=== PATIENT | male | born 1970 | race Caucasian/White ===

== ENCOUNTER → 2021-01-18 16:51 | Outpatient (CLI) | payer OTHER, SELFPAY ==
--- NOTE | 2021-01-18 16:52 | DI.MRI.S_ITS ---
PROCEDURE: MR KNEE LT WO CON INDICATIONS: Pain in left knee TECHNIQUE: Noncontrast sagittal PD fast spin echo and T2 fast spin echo with fat saturation, sagittal 3-D FLASH with fat saturation; coronal T1 spin echo and PD fast spin echo with fat saturation, and axial PD fast spin echo with fat saturation through the knee. COMPARISON: None. FINDINGS: Menisci: Medial meniscus: Intact. Lateral meniscus: Intact. Cruciate ligaments: Anterior cruciate ligament: Intact. Posterior cruciate ligament: Intact. Medial structures: The medial collateral ligament: Intact. Semimembranosus tendon: Mild insertional tendinopathy and thickening. Visualized pes anserinus tendons: Intact. Bursal fluid: none. Lateral structures: The lateral collateral ligament intact. Biceps femoris tendon appears intact. Popliteus tendon grossly unremarkable. Iliotibial band appears intact. Anterior structures: Quadriceps tendon intact. Medial and lateral patellofemoral ligaments intact. There is mild patellar tendinopathy. Prepatellar and superficial infrapatellar subcutaneous edema/fluid. Trace deep infrapatellar bursal fluid is seen. Bones and cartilage: Marrow: No focal marrow contusion or discrete low signal fracture line. Medial compartment: Diffuse partial-thickness loss and surface fraying of the femoral cartilage. The tibial cartilage appears grossly intact. Lateral compartment: No focal cartilage defect. Patellofemoral compartment: No focal cartilage defect. Joint space: No joint effusion. No Shea's cyst. No specific evidence of intra-articular loose body. IMPRESSION: Patellar tendinopathy with adjacent fluid and edema. Mild insertional semimembranosus tendinopathy. Medial compartment osteoarthritis Dictated by: Heriberto Cummins M.D. on 01/19/2021 at 8:26 Approved by: Heriberto Cummins M.D. on 01/19/2021 at 8:32
== END ==
PROVIDERS: PCP Family Medicine; Referring Provider Family Medicine; Visit Provider Family Medicine
DX: M25.562 Pain in left knee (principal); M17.12 Unilateral primary osteoarthritis, left knee
CPT/HCPCS: 73721

== ENCOUNTER → 2021-01-28 14:19 | Outpatient (CLI) | payer OTHER, SELFPAY ==
[2021-01-28] MEDS: COVID-19 VACC #2, MRNA(MOD) 100 MCG/0.5 ML VIAL IM (14:25)
== END ==
PROVIDERS: PCP Family Medicine; Visit Provider Internal Medicine
DX: Z23 Encounter for immunization (principal)
CPT/HCPCS: 0012A; 91301

== ENCOUNTER → 2022-12-10 09:09 | Outpatient (CLI) | payer OTHER, SELFPAY ==
--- NOTE | 2022-12-10 | DI.MRI.S_ITS ---
PROCEDURE: MR KNEE RT WO CON INDICATIONS: TEAR AND PAIN TECHNIQUE: Noncontrast sagittal PD fast spin echo and T2 fast spin echo with fat saturation, sagittal 3-D FLASH with fat saturation; coronal T1 spin echo and PD fast spin echo with fat saturation, and axial PD fast spin echo with fat saturation through the knee. COMPARISON: [facility], MR, MR KNEE RIGHT WITHOUT CONTRAST, 08/04/2018, 13:01. FINDINGS: Image quality: Excellent. Anterior Cruciate Ligament: Intact. Posterior Cruciate Ligament: Intact. Medial Collateral Ligament: Intact. Lateral Collateral Ligament: Intact. Medial Meniscus: Diminutive appearance of the medial meniscal body and truncation of the inner margin of the posterior horn are compatible with prior partial meniscectomy. No recurrent medial meniscal tear is seen. Lateral Meniscus: Intact. Medial and Lateral Tendons: The semimembranosus tendon insertions and meniscocapsular junction appear intact. Visualized portions of the pes anserinus tendons appear normal. No abnormal bursal fluid. The long and short heads of the biceps femoris tendon appear intact. The popliteus tendon appears intact. No signs of posterolateral corner injury. Iliotibial band appears normal. Anterior Structures: The quadriceps and patellar tendons appear intact. No patellar subluxation. No femoral trochlear dysplasia or ventral trochlear prominence. Mild scarring in the infrapatellar fat pad. Bones: No acute trabecular bone injury or fracture. Medial Femorotibial Cartilage: Generalized moderate grade partial-thickness cartilage thinning is seen throughout the weight-bearing portion of the medial femorotibial compartment. There is focal deep cartilage fissuring and subchondral edema at the posterior weight-bearing portion of the medial femoral condyle. Small marginal osteophytes are present. The degree of cartilage loss has mildly progressed when compared to the MRI from 08/04/2018. Lateral Femorotibial Cartilage: Mild partial-thickness cartilage thinning in the posterior weight-bearing portion of the lateral tibial plateau. Patellofemoral Cartilage: Partial-thickness cartilage irregularity is seen at the median ridge/lateral facet of the patella. There is high-grade partial-thickness cartilage loss at the trochlear groove and lateral femoral trochlea. Soft Tissues: A small amount of joint fluid is present. Fluid is seen tracking inferiorly along the popliteus tendon sheath. Trace medial popliteal cyst. The musculature surrounding the knee is normal in bulk. IMPRESSION: 1. Postsurgical changes from partial medial meniscectomy with a moderately diminutive residual rim of tissue at the meniscal body. No recurrent meniscal tear is seen. 2. Grade 3 chondromalacia is seen in the patellofemoral compartment at the trochlear groove and lateral femoral trochlea. Grade 2-3 chondromalacia and cartilage thinning are seen in the medial femorotibial compartment and there is mild grade 2 chondromalacia in the lateral compartment. Cartilage loss has progressed when compared to the prior MRI from 08/04/2018. 3. No acute trabecular bone injury. Cruciate and collateral ligaments are intact. 4. Small joint effusion. Small lateral popliteal cyst. Approved by: Werner Springer M.D. on 12/12/2022 at 9:44
--- NOTE | 2022-12-10 | DI.MRI.S_ITS ---
PROCEDURE: MR KNEE LT WO CON INDICATIONS: TEARS AND PAIN TECHNIQUE: Noncontrast sagittal PD fast spin echo and T2 fast spin echo with fat saturation, sagittal 3-D FLASH with fat saturation; coronal T1 spin echo and PD fast spin echo with fat saturation, and axial PD fast spin echo with fat saturation through the knee. COMPARISON: [facility] Outside Film, MR, MR KNEE LEFT WITHOUT CONTRAST, 01/25/2022, 10:35. [facility], MR, MR KNEE LT WO CON, 01/18/2021, 16:58. FINDINGS: Image quality: Excellent. Anterior Cruciate Ligament: Intact. Posterior Cruciate Ligament: Intact. Medial Collateral Ligament: Intact. Lateral Collateral Ligament: Intact. Medial Meniscus: Complex tearing is seen involving the body of the medial meniscus near the junction with posterior horn with a horizontal oblique component that extends to the middle third of the tibial articular surface as well as a deep radial component. There is mild extrusion of the meniscal body beyond the femorotibial joint line. The tear appears new when compared to the MRI from 01/24/2024. Lateral Meniscus: Intact. Medial and Lateral Tendons: The semimembranosus tendon insertions and meniscocapsular junction appear intact. Visualized portions of the pes anserinus tendons appear normal. No abnormal bursal fluid. The long and short heads of the biceps femoris tendon appear intact. The popliteus tendon appears intact. No signs of posterolateral corner injury. Iliotibial band appears normal. Anterior Structures: The quadriceps and patellar tendons appear intact. No patellar subluxation. No femoral trochlear dysplasia or ventral trochlear prominence. No edema in the infrapatellar fat pad. Bones: No acute trabecular bone injury or fracture. Medial Femorotibial Cartilage: High-grade partial-thickness cartilage thinning irregularity is seen throughout the weight-bearing portion of the medial femorotibial compartment with subchondral edema and marginal osteophyte formation. Cartilage loss has mildly progressed when compared to the MRI from 01/25/2022. Lateral Femorotibial Cartilage: Mild partial-thickness surface cartilage irregularity of the posterior weight-bearing portion of the lateral tibial plateau. Patellofemoral Cartilage: Shallow cartilage fissuring is seen at the medial facet and median ridge of the patella in the trochlear groove. Soft Tissues: A small amount of joint fluid is present. Fluid is seen tracking along the popliteus tendon sheath and there is surrounding soft tissue edema included within the popliteus muscle, possibly related to prior cyst rupture versus popliteus tendon strain. Trace medial popliteal cyst. The musculature surrounding the knee is normal in bulk. IMPRESSION: 1. Complex tearing of the medial meniscal body with horizontal oblique and radial components, which is new when compared to the MRI from 01/25/2022. Mild extrusion of the meniscal body beyond the femorotibial joint line. 2. Grade 3 chondromalacia throughout the weight-bearing portion of the medial femorotibial compartment with mild subchondral edema, mildly progressed when compared to the prior MRI. There is also mild grade 2 chondromalacia in the lateral compartment and shallow cartilage fissuring in the anterior compartment. 3. No acute trabecular bone injury. The cruciate and collateral ligaments are intact. 4. Small joint effusion. 5. Small lateral popliteal cyst with signs of possible prior cyst rupture versus low-grade popliteus muscle strain. Approved by: Werner Springer M.D. on 12/12/2022 at 9:54
== END ==
PROVIDERS: PCP Family Medicine; Referring Provider Family Medicine; Visit Provider Family Medicine
DX: S83.232A Complex tear of medial meniscus, current injury, left knee, initial encounter (principal); M94.262 Chondromalacia, left knee; M71.22 Synovial cyst of popliteal space [Baker], left knee; M25.462 Effusion, left knee; M22.41 Chondromalacia patellae, right knee; M25.461 Effusion, right knee; M71.21 Synovial cyst of popliteal space [Baker], right knee; M25.569 Pain in unspecified knee; Z98.890 Other specified postprocedural states
CPT/HCPCS: 73721

== ENCOUNTER 2024-04-01 17:15 | Emergency (ER) | payer BC, OTHER, SELFPAY ==
--- NOTE | 2024-04-01 17:21 | DI.RAD.S_ITS ---
PROCEDURE: XR CHEST 1V INDICATIONS: chest pain TECHNIQUE: One view of the chest was acquired. COMPARISON: None. FINDINGS: Surgical changes and devices: None. Lungs and pleura: Lungs are clear. No pleural effusions or pneumothorax. Mediastinum: Mediastinal contours appear normal. Heart size is normal. Bones and chest wall: No suspicious bony lesions. Overlying soft tissues appear unremarkable. IMPRESSION: No acute pulmonary process. Dictated by: Parul Ross M.D. on 04/01/2024 at 17:48 Approved by: Parul Ross M.D. on 04/01/2024 at 17:48
[2024-04-01 17:23] VITALS: BP 160/84; PULSE 63; RESP 16; TEMP 36.6; O2SAT 99; BMI 39.9
[2024-04-01 17:29] VITALS: PULSE 70; RESP 17; O2SAT 98
[2024-04-01 17:30] VITALS: PULSE 71; RESP 17; O2SAT 98
--- NOTE | 2024-04-01 17:30 | EKG_ITS ---
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
[2024-04-01 17:36] LABS: Add Manual Diff / Slide Review NO; Basophils Absolute Auto 100 /uL (0-100); Basophils Percent Auto 0.9 % (0-2); Eosinophils Absolute Auto 200 /uL (0-450); Eosinophils Percent Auto 3.6 % (2-4); Hematocrit 46.9 % (41-53); Hemoglobin 16.3 g/dL (13.5-17.5); Lymphocytes Absolute Auto 1900 /uL (1100-4500); Lymphocytes Percent Auto 31.9 % (25-40); Mean Corpuscular HGB Conc 34.8 % (30-36); Mean Corpuscular Volume 94.7 fL (80-100); Monocytes Absolute Auto 700 /uL (0-900); Monocytes Percent Auto 12.3 % (3-14); Neutrophils Absolute Auto 3000 /uL (1500-7000); Neutrophils Percent Auto 51.3 % (50-75); Platelet Count 190 X10^3/uL (150-400); Red Blood Cell Count 4.95 X10^6/uL (4.5-5.9); Red Cell Distribution Width 12.3 % (11.6-14.8); White Blood Cell Count 5.9 X10^3/uL (4.5-11.0)
[2024-04-01 17:41] VITALS: BP 161/98; PULSE 65; RESP 10
--- NOTE | 2024-04-01 17:41 | PC.NURSE ---
Patient denies chest pain and shortness of breath. States that the [facility] did an EKG because he had an elevated pressure and possible arrhythmia on his vital signs and sent him to ED for rule out TN. 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
[2024-04-01 17:49] LABS: PTT Partial Thromboplastin Tim 33 SECONDS (25.1-36.5)
[2024-04-01 17:51] LABS: Alanine Aminotransferase 75 IU/L (<50); Albumin 4.4 g/dL (3.5-5.0); Albumin Globulin Ratio 1.4 (1.0-2.8); Alkaline Phosphatase 84 U/L (38-126); Aspartate Aminotransferase 41 IU/L (17-59); BUN Creatinine Ratio 17.4 (6-22); Bilirubin Total 0.9 mg/dL (0.2-1.3); Blood Urea Nitrogen 16 mg/dL (9-20); Calcium 9.2 mg/dL (8.4-10.2); Carbon Dioxide 23 mmol/L (22-32); Chloride 107 mmol/L (98-107); Creatine Kinase 161 U/L (55-170); Estimated Glomerular Filt Rate > 60 mL/min (>60); Globulin 3.1 g/dL (1.7-4.1); Glucose 98 mg/dL (70-100); HEMOLYSIS < 15 (0-50); Lipase 313 U/L (23-300); Magnesium 1.9 mg/dL (1.6-2.3); Sodium 136 mmol/L (137-145); Total Protein 7.5 g/dL (6.3-8.2)
[2024-04-01 17:55] LABS: COVID19 -Nasal RAPID Negative (Negative)
[2024-04-01 18:00] VITALS: PULSE 70; RESP 16
[2024-04-01 18:02] LABS: NT-proBNP (BNP-Adult 18+) 36 pg/mL (<125); Troponin I < 0.012 ng/mL (0.01-0.034)
--- NOTE | 2024-04-01 18:04 | ED_ITS ---
HPI - Chest Pain General Chief Complaint: Upper Respiratory Symptoms Stated Complaint: irregular heartbeat Time Seen by Provider: 04/01/24 17:19 Source: patient Mode of arrival: Ambulatory Limitations: no limitations History of Present Illness HPI narrative: Patient is a healthy 53-year-old male who presents today at request of walk-in clinic. He went to the walk-in clinic today because he felt funny he had some chills and headache found to be hypertensive with a abnormal EKG and they said concerning for an MO. He has no acute ST elevations denies any sort of chest pain now. He reports that he is just felt really fatigued and tired no significant shortness of breath cough or fever. He recently started minocycline for folliculitis couple days ago. 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 He has no throat swelling tongue swelling lip swelling or difficulty breathing he has no hives or urticaria. He previously felt some similar symptoms when he had bronchitis and when he was allergic to Mobic. He does have family history dad had MO in his 40s however all 3 brothers who are older than him have never had cardiac issues he has no known coronary artery disease. His EKG does show some Q-waves in lead 3 and AVF. He actually has an appointment with his primary care provider on April 16 Related Data Allergies Allergy/AdvReac Type Severity Reaction Status Date / Time meloxicam [From Mobic] AdvReac Mild Hypertensio Verified 04/01/24 17:22 n Patient History Social History Smoking Status: Former smoker Smoking Status: Former smoker alcohol intake frequency: a few times a week Substance Use Type: does not use Exam Initial Vital Signs Initial Vital Signs: Vital Signs Temperature 97.9 F 04/01/24 17:23 Pulse Rate 63 04/01/24 17:23 Respiratory Rate 16 04/01/24 17:23 Blood Pressure 160/84 H 04/01/24 17:23 Pulse Oximetry 99 04/01/24 17:23 Oxygen Delivery Method Room Air 04/01/24 17:23 GENERAL: Alert pleasant 53-year-old male and in no acute distress. HEENT: Head atraumatic,EOMI, pupils reactive, face symmetric, moist mucous membranes CARDIOVASCULAR: Regular rate and rhythm without murmurs, rubs or gallops. RESPIRATORY: Breath sounds equal bilaterally, no wheezes rales or rhonchi. ABDOMEN: Soft, nontender. Normoactive bowel sounds all 4 quadrants. No guarding or rebound. EXTREMITIES: Normal range of motion, no clubbing or edema. Neurovascularly intact NEUROLOGICAL: Alert and oriented x4.Normal gait and speech. SKIN: Warm, dry, no laceration, no petechiae, no rashes or lesions. Scores HEART Score Heart Score history: Slightly Suspicious Heart Score EKG: Normal Heart Score Age: 45-64 years old Heart Score risk factors: 1-2 risk factors Heart Score troponin: < or = to normal limit Heart Score Total: 2 Course Orders Ordered: ED Orders 04/01/24 17:21 XR chest 1V Stat EKG-12 Lead Stat 04/01/24 17:25 Complete Blood Count AUTO DIFF Stat Comprehensive Metabolic Panel Stat Lipase Stat Magnesium Stat NT-proBNP (BNP-Adult 18+) Stat PTT Partial Thromboplastin Iraj Stat Prothrombin Time INR Stat Troponin & CK Cardiac Panel Stat 04/01/24 17:32 COVID19 -Nasal RAPID Stat Discontinued Medications Aspirin (Aspirin 81 Mg Chew Tab) 324 mg PO NOW ONE Stop: 04/01/24 17:22 Last Admin: 04/01/24 18:31 Dose: Not Given Documented By: ZACHERY Vital Signs Vital signs: Vital Signs - 8 hr 04/01/24 17:23 04/01/24 17:29 04/01/24 17:30 Temperature 97.9 F Pulse Rate 63 70 71 Respiratory Rate 16 17 17 Blood Pressure 160/84 H Pulse Oximetry 99 98 98 Oxygen Delivery Method Room Air 04/01/24 17:41 04/01/24 17:41 04/01/24 18:00 Temperature Pulse Rate 65 70 Respiratory Rate 10 L 16 Blood Pressure 161/98 H Pulse Oximetry Oxygen Delivery Method MDM - Chest Pain Lab Data 04/01/24 17:25 04/01/24 17:25 Labs: Lab Results 04/01/24 04/01/24 Range/Units 17:25 17:32 WBC 5.9 (4.5-11.0) X10^3/uL RBC 4.95 (4.5-5.9) X10^6/uL Hgb 16.3 (13.5-17.5) g/dL Hct 46.9 (41-53) % MCV 94.7 (80-100) fL MCH 33.0 (26-34) PG MCHC 34.8 (30-36) % RDW 12.3 (11.6-14.8) % Plt Count 190 (150-400) X10^3/uL Neut % (Auto) 51.3 (50-75) % Lymph % (Auto) 31.9 (25-40) % [place] % (Auto) 12.3 (3-14) % Eos % (Auto) 3.6 (2-4) % Baso % (Auto) 0.9 (0-2) % Neut # (Auto) 3000 (7141-9648) /uL Lymph # (Auto) 1900 (1552-4110) /uL [place] # (Auto) 700 (0-900) /uL Eos # (Auto) 200 (0-450) /uL Baso # (Auto) 100 (0-100) /uL PT 12.0 (9.4-12.5) SECONDS INR 1.0 (0.9-1.3) APTT 33 (25.1-36.5) SECONDS Sodium 136 L (137-145) mmol/L Potassium 4.0 (3.4-5.1) mmol/L Chloride 107 (98-107) mmol/L Carbon Dioxide 23 (22-32) mmol/L BUN 16 (9-20) mg/dL Creatinine 0.92 (0.66-1.25) mg/dL Estimated GFR > 60 (>60) mL/min BUN/Creatinine Ratio 17.4 (6-22) Glucose 98 (70-100) mg/dL Calcium 9.2 (8.4-10.2) mg/dL Magnesium 1.9 (1.6-2.3) mg/dL Total Bilirubin 0.9 (0.2-1.3) mg/dL AST 41 (17-59) IU/L ALT 75 H (<50) IU/L Alkaline Phosphatase 84 (38-126) U/L Total Creatine Kinase 161 (55-170) U/L Troponin I < 0.012 (0.01-0.034) ng/mL NT-Pro-B Natriuret Pep 36 (<125) pg/mL Total Protein 7.5 (6.3-8.2) g/dL Albumin 4.4 (3.5-5.0) g/dL Globulin 3.1 (1.7-4.1) g/dL Albumin/Globulin Ratio 1.4 (1.0-2.8) Lipase 313 H (23-300) U/L SARS-CoV-2 (PCR) Negative (Negative) ECG Data Attestation: I personally reviewed and interpreted this ECG as follows: Interpretation: Normal sinus rhythm rate 64 AK interval 166 QRS 78 QTC 435 PVC noted Q-wave and T-wave inversion noted in lead 3 and AVF no changes in lead 2 no priors to compare MDM Narrative Medical decision making narrative: Patient 53-year-old male with family history dad having cardiac disease presenting today with fatigue mild headache and elevated blood pressure. There were concerns for acute coronary syndrome by walk-in clinic. However patient is not having any sort of chest pain shortness of breath or palpitations. He is found to have frequent PVC's but is overall asymptomatic. He does have Q-waves in 3 and AVF no prior EKGs to compare. He has no ST changes and is not having. I do believe that these changes are Blood work has been reviewed he has a negative troponin no leukocytosis or anemia, CMP does not show any electrolyte abnormality or kidney dysfunction. Lipase is 313 he has no abdominal pain Rapid COVID test is negative Chest x-ray has been reviewed he has no cardiopulmonary process EKG has been reviewed as above Patient has a low risk heart score. Patient has a follow-up appointment with his PCP on April 16. At this time he has not actively having symptoms of acute coronary syndrome blood work and chest x-ray and EKG not show any evidence of such. I do recommend that he have outpatient stress testing and cardiac evaluation he does have positive family history knee does have some Q-waves but I do not think this is acute. He is having more upper respiratory like symptoms. Also possible drug reaction to minocycline however has no evidence of anaphylaxis. At this time I see no need for any sort of further testing. Discharge Plan Departure Patient Disposition: Home Clinical Impression: Upper respiratory infection Instructions: DI for Viral Upper Respiratory Infection -- Adult Activity Restrictions/Additional Instructions: *You have been diagnosed with upper respiratory infection *What to do: At this time I do recommend that you talk to your primary care provider about cardiac testing such as a stress test and echocardiogram I suspect that you might have some sort of upper respiratory infection although your COVID test is negative no need for further antibiotics there has no evidence of pneumonia *Continue to take medications as directed *Follow up with your primary care provider in 2-3 days or call [phone] *Return to ER if you should have increasing shortness of breath chest pain heaviness or any new, worsening or concerning symptoms Referrals: Cinthia Spence DO [Primary Care Provider] - Stand Alone Forms: Patient Portal/API
== END 2024-04-01 18:36 | disposition home or self-care (01) ==
PROVIDERS: Emergency Provider Emergency Medicine; PCP Family Medicine
DX: J06.9 Acute upper respiratory infection, unspecified (principal); R94.31 Abnormal electrocardiogram [ECG] [EKG]; R51.9 Headache, unspecified; Z87.891 Personal history of nicotine dependence
CPT/HCPCS: 36415; 71045; 80053; 82550; 83690; 83735; 83880; 84484; 85025; 85610; 85730; 87635; 93005; 99284

== ENCOUNTER → 2024-10-26 12:53 | Outpatient (CLI) | payer BC, OTHER, SELFPAY ==
--- NOTE | 2024-10-26 | DI.MRI.S_ITS ---
PROCEDURE: MR HEAD/BRAIN WO CON INDICATIONS: AMNESIA TECHNIQUE: Noncontrast axial T1 spin echo, axial T2 fast spin echo, sagittal and axial FLAIR, coronal T2 fast spin echo, axial gradient echo, axial diffusion and ADC through the brain. COMPARISON: None. FINDINGS: CSF Spaces: Basal cisterns are patent. No extra-axial fluid collections. Ventricles are normal in size and shape. Brain: No intracranial masses or hemorrhage. Louie/white matter interface is normal. Brainstem appears normal. Diffusion-weighted sequence is unremarkable without evidence of acute infarct. Normal intravascular flow voids are present. Mild atrophy and white matter chronic ischemic change Skull and face: Calvarium has normal marrow signal. Orbits appear normal. Sinuses: Small right maxillary sinus retention cyst IMPRESSION: Mild atrophy and chronic ischemic change without intracranial hemorrhage or mass Approved by: Jim Knox M.D. on 10/28/2024 at 16:58
== END ==
PROVIDERS: PCP Family Medicine; Referring Provider Family Medicine; Visit Provider Family Medicine
DX: R41.3 Other amnesia (principal)
CPT/HCPCS: 70551

== ENCOUNTER → 2025-09-02 12:09 | Outpatient (CLI) | payer BC, OTHER, SELFPAY ==
--- NOTE | 2025-09-02 12:11 | DI.MRI.S_ITS ---
PROCEDURE: MR CERVICAL SPINE WO CON INDICATIONS: Radiculopathy cervical spine, lumbar spine TECHNIQUE: Noncontrast sagittal T1 spin echo and T2 fast spin echo, sagittal STIR, foraminal oblique sagittal T2 fast spin echo, and axial gradient echo or T2 fast spin echo through the cervical spine. COMPARISON: None. FINDINGS: Image quality: Diagnostic Alignment and Curvature: There is normal bony alignment. Bone Marrow: Marrow demonstrates normal overall signal. Spinal Cord: Visualized spinal cord has normal size and signal. No cerebellar tonsillar herniation. Paraspinous Soft Tissues: No paravertebral masses. Prevertebral soft tissues are normal in thickness. C2-C3: No spinal canal or neural foraminal stenosis. C3-C4: Right moderate neural foraminal stenosis due to uncovertebral and facet arthrosis. No left neural foraminal stenosis. No spinal canal stenosis. C4-C5: No spinal canal stenosis. Mild bilateral neural foraminal stenosis due to facet greater than uncovertebral arthrosis. C5-C6: No spinal canal stenosis. Mild bilateral neural foraminal stenosis due to facet greater than uncovertebral arthrosis. C6-C7: No spinal canal or neural foraminal stenosis. C7-T1: No spinal canal or neural foraminal stenosis. IMPRESSION: Multilevel neural foraminal stenosis reaches moderate on the right at C3-4, mild bilaterally at C4-5 and C5-6. Dictated by: Black Koehler M.D. on 09/02/2025 at 14:45 Approved by: Black Koehler M.D. on 09/02/2025 at 14:51
--- NOTE | 2025-09-02 12:11 | DI.MRI.S_ITS ---
PROCEDURE: MR LUMBAR SPINE WO CON INDICATIONS: Radiculopathy cervical spine, lumbar spine TECHNIQUE: Noncontrast sagittal T1 spin echo and T2 fast echo, sagittal STIR, and T2 fast spin echo through the lumbar spine. In cases with scoliosis, additional coronal T2 fast spin echo may be performed. COMPARISON: None. FINDINGS: Image quality: Excellent. Alignment and Curvature: There is normal bony alignment. Bone Marrow: Marrow is of normal overall signal. No acute vertebral body compression fractures. Spinal Cord: Conus medullaris terminates at the T12-L1 level. Visualized cord demonstrates normal signal and size. Paraspinous Soft Tissues: No paravertebral masses. T12-L1: Normal appearance. L1-L2: Normal appearance. L2-L3: Disc desiccation and mild diffuse disc bulge. Mild central canal stenosis. No significant neural foraminal stenosis. L3-L4: Disc desiccation and diffuse disc bulge. Facet arthropathy. Mild central canal stenosis. Narrowing of the left lateral recess with abutment versus mild injury of the descending left L4 nerve root. Mild bilateral neural foraminal stenosis. L4-L5: Disc desiccation. Facet arthropathy. No significant central canal stenosis. Mild bilateral neural foraminal stenosis. L5-S1: Disc desiccation and mild disc bulge. Facet arthropathy. No central canal stenosis. No significant neural foraminal stenosis. IMPRESSION: Mild multilevel degenerative changes of the lumbar spine as described above. Dictated by: Rick Bradley M.D. on 09/02/2025 at 16:23 Approved by: Rick Bradley M.D. on 09/02/2025 at 16:27
--- NOTE | 2025-09-02 12:12 | DI.MRI.S_ITS ---
PROCEDURE: MR SHOULDER LT WO CON INDICATIONS: bilateral shoulder pain TECHNIQUE: Noncontrast oblique coronal T2 fast spin echo with fat saturation, oblique sagittal T1 spin echo and T2 fast spin echo with fat saturation, axial T1 spin echo and T2 fast spin echo with fat saturation through the shoulder. COMPARISON: None. FINDINGS: Image quality: Diagnostic. Rotator cuff: Full-thickness supraspinatus and anterior infraspinatus tear with total tear width of 4.1 cm there is few remaining , attenuated, tendinotic, bursal sided tendon fibers within the rotator cuff interval. Moderate tendinosis of the remaining posterior infraspinatus tendon fibers. The torn tendon fibers are retracted to the medial humeral apex. There is partial delamination the infraspinatus tendon with fluid tracking along the myotendinous junction. Mild tendinosis of teres minor. Mild tendinosis of the superior subscapularis with full-thickness perforation of the superior insertional tendon fibers at the lesser tuberosity (series 9, image 14). Mild atrophy of supraspinatus with minimal fatty infiltration of the rotator cuff musculature. Biceps: No tendinosis or tear. The anchor is intact. Osseous structures and articular cartilage: No fracture, or suspicious marrow replacing process, or contusion. Posterior humeral decentering on the glenoid. Superficial articular cartilage thinning and fraying throughout the glenohumeral joint without local full-thickness articular cartilage defect. 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 Moderate volume fluid in the subacromial subdeltoid bursa, which communicates through the full-thickness superior rotator cuff tear with the joint space. Intra-articular: Free edge blunting of the posterior labrum without discrete intrasubstance tear. Mild sprain of the humeral attachment of the inferior glenohumeral ligament, no high-grade capsular tear. Extra-articular: Normal deltoid. No visualized axillary lymphadenopathy. The superficial soft tissues are unremarkable. IMPRESSION: 1. Massive superior rotator cuff tear with functionally complete tear of supraspinatus and anterior infraspinatus with retraction of the torn tendons to the medial humeral apex. 2. Superimposed partial delamination of the infraspinatus tendon with fluid tracking along the myotendinous junction. 3. Subscapularis superior insertional tendon fiber full-thickness perforation at the lesser tuberosity. 4. Mild atrophy of supraspinatus with minimal fatty infiltration of the rotator cuff musculature. 5. Mild chondromalacia of the glenohumeral joint. Dictated by: Black Koehler M.D. on 09/02/2025 at 14:21 Approved by: Black Koehler M.D. on 09/02/2025 at 14:29
--- NOTE | 2025-09-02 12:12 | DI.MRI.S_ITS ---
PROCEDURE: MR SHOULDER RT WO CON INDICATIONS: bilateral shoulder pain TECHNIQUE: Noncontrast oblique coronal T2 fast spin echo with fat saturation, oblique sagittal T1 spin echo and T2 fast spin echo with fat saturation, axial T1 spin echo and T2 fast spin echo with fat saturation through the shoulder. COMPARISON: [facility], MR, MR SHOULDER LT WO CON, 09/02/2025, 12:17. FINDINGS: Image quality: Diagnostic. Rotator cuff: Anterior supraspinatus insertional full-thickness, partial width, 11 mm, tear at the greater tuberosity with intrasubstance partial tearing and delamination (coronal series 7, images 10 and 11) which results in in fluid tracking along the myotendinous junction. Infraspinatus articular sided insertional perforations which result in fluid tracking along the myotendinous junction (series 9, image 14). Subscapularis articular partial-thickness, 50%, partial width, 9 mm, insertional tear at the superior lesser tuberosity. No significant atrophy or fatty infiltration of the rotator cuff musculature. Intact teres minor. Biceps: No tendinosis or tear. The anchor is intact. Osseous structures and articular cartilage: No fracture, or suspicious marrow replacing process, or contusion. The articular cartilage is intact. Supraspinatus outlet: Mild acromioclavicular joint osteoarthritis. The acromion demonstrates conventional anatomy, without an os acromiale. Small volume subacromial subdeltoid bursitis. Intra-articular: Free edge blunting of the posterior labrum without discrete intrasubstance tear. The capsule is unremarkable. No imaging findings of adhesive capsulitis. Extra-articular: Normal deltoid. No visualized axillary lymphadenopathy. The superficial soft tissues are unremarkable. IMPRESSION: 1. Supraspinatus anterior insertional full-thickness partial width tear, with partial delaminating tear of the adjacent central insertional tendon. 2. Infraspinatus articular sided perforations with fluid tracking along the myotendinous junction. 3. Subscapularis high-grade partial thickness partial width tear at the lesser tuberosity. Dictated by: Black Koehler M.D. on 09/02/2025 at 14:32 Approved by: Black Koehler M.D. on 09/02/2025 at 14:45
== END ==
PROVIDERS: PCP Family Medicine; Referring Provider Family Medicine; Visit Provider Family Medicine
DX: M54.12 Radiculopathy, cervical region (principal); M48.02 Spinal stenosis, cervical region; M47.26 Other spondylosis with radiculopathy, lumbar region; M47.27 Other spondylosis with radiculopathy, lumbosacral region; M75.122 Complete rotator cuff tear or rupture of left shoulder, not specified as traumatic; M75.121 Complete rotator cuff tear or rupture of right shoulder, not specified as traumatic; M19.012 Primary osteoarthritis, left shoulder; M19.011 Primary osteoarthritis, right shoulder; M94.212 Chondromalacia, left shoulder; M75.40 Impingement syndrome of unspecified shoulder; M25.511 Pain in right shoulder; M25.512 Pain in left shoulder
CPT/HCPCS: 72141; 72148; 73221